=== PATIENT | female | born 1970 | race American Indian/Alaskan Native ===

== ENCOUNTER 2018-01-05 10:33 | Day surgery (SDC) | payer BC ==
[2017-10-09 10:50] VITALS: BMI 43.8
--- NOTE | 2018-01-05 12:28 | CP.SDSHP ---
Same Day Surgery H & P - History Proposed Procedure: US guided FNA of left thyroid nodule Pre-Op Diagnosis: left thyroid nodule - Allergies Allergies: Allergies azithromycin [From Zithromax Z-Roberto] Allergy (Verified 10/09/17 11:16) ANAPHYLAXIS ibuprofen [From Motrin] Allergy (Verified 10/09/17 11:16) ANAPHYLAXIS Iodine and Iodide Containing Produc Allergy (Verified 01/05/18 10:54) SHORTNESS OF BREATH pt denies, [id number] levofloxacin [From Levaquin] Allergy (Verified 10/09/17 11:16) RASH only if taking it more then 2 weeks - Physical Exam Vital Signs: Vital Signs 01/05/18 10:55 Temperature 97.5 F L Pulse Rate 80 Respiratory 20 Rate Blood Pressure 137/84 O2 Sat by Pulse 96 Oximetry - Impression Impression: Pt with subcentimeter right thyroid nodules and 2cm left thyroid nodule. Plan US guided FNA of left thyroid nodule. Pt. Evaluated Today:Candidate for Anesthesia & Procedure: No - Date & Time Date: 01/05/18 Time: 12:00 Short Stay Discharge - Short Stay Discharge Admitting Diagnosis/Reason for Visit: THYROID MODULE Disposition: HOME/ ROUTINE
--- NOTE | 2018-01-05 12:30 | PCM.SURG1 ---
Surgeon's Initial Post Op Note - Surgeon's Notes Surgeon: Delfino Richardson MD Network Director: NONE Type of Anesthesia: Local Pre-Operative Diagnosis: Left thyroid nodule Operative Findings: US showed a hypoechoic left thyroid 2 cm nodule. Post-Operative Diagnosis: Left thyroid nodule Operation Performed: US guided FNA Specimen/Specimens Removed: 25 g FNA x 4 passes Estimated Blood Loss: EBL {In ML}: 0 Blood Products Given: N/A Drains Used: No Drains Post-Op Condition: Fair Date of Surgery/Procedure: 01/05/18 Time of Surgery/Procedure: 12:25
--- NOTE | 2018-01-05 13:50 | US ---
PROCEDURE: Date of Procedure: 01/05/2018 PROCEDURE: 1. Ultrasound guided FNA of left thyroid nodule, CPT 00586 2. Ultrasound guidance for FNA, 14619 Medications: 4CC 1% Lidocaine HISTORY: Enlarged left thyroid nodule. TECHNIQUE: Following informed consent and procedure time-out, a limited ultrasound patient's neck confirmed the presence of a 2 cm left thyroid nodule which is predominantly solid. Several subcentimeter nodules present in the right thyroid gland. After the patient's neck was prepped and draped in the usual sterile fashion, the skin was anesthetized with 1% lidocaine. Ultrasound-guided fine needle aspiration was then performed of the dominant left thyroid nodule. A total of 4 passes were made into the nodule with 25 gauge needle under ultrasound guidance. The FNA specimen was sent for routine pathology. Post biopsy ultrasound showed no hematoma. IMPRESSION: Ultrasound-guided FNA of the dominant left thyroid nodule.
[2018-01-05 14:32] VITALS: BP 137/72; PULSE 71; RESP 18; TEMP 97; O2SAT 100
== END 2018-01-05 14:35 | disposition home or self-care (01) ==
LOC: C.SDS 10:33
PROVIDERS: ATTEND Radiology Vascular & Interventional Radiology
DX: E04.2 Nontoxic multinodular goiter (principal)

== ENCOUNTER 2019-03-16 01:47 | Emergency (ER) | payer BC ==
[2019-03-16 01:47] VITALS: BMI 47.0
[2019-03-16] MEDS ORDERED: Hydrocodone/Acetaminophen 5 mg /300 mg Tab PO STA (02:31)
[2019-03-16] MEDS ORDERED: Hydrocodone/Acetaminophen 5 mg /300 mg Tab PO ONE (02:46)
--- NOTE | 2019-03-16 02:47 | C.PDOC ---
History Of Present Illness 49 year old female was walking last night when she felt a pop in her right foot. Patient was already seen by Dr. Bethea in the morning, had negative x-ray and was scheduled for outpatient MRI. She reports pain tonight even after tramadol and tylenol, she called Dr. Bethea who advised her to come in to the ER. No new injuries. Time Seen by Provider: 03/16/19 02:06 Chief Complaint (Nursing): Lower Extremity Problem/Injury History Per: Patient History/Exam Limitations: no limitations Onset/Duration Of Symptoms: Hrs Current Symptoms Are (Timing): Still Present Recent travel outside of the [place]: No Past Medical History Reviewed: Historical Data, Nursing Documentation, Vital Signs Vital Signs: Last Vital Signs Temp 98.5 F 03/16/19 01:58 Pulse 76 03/16/19 01:58 Resp 16 03/16/19 01:58 BP 163/82 H 03/16/19 01:58 Pulse Ox 96 03/16/19 01:58 - Medical History PMH: Anemia, Anxiety, Asthma, Depression, Diabetes, HTN, Migraine, Sleep Apnea Denies: Personality Disorder - [facility] Procedures APPLICATION OF SPLINT (04/09/07) ASSISTANCE WITH RESPIRATORY VENTILATION, <24 HRS, CPAP (12/02/15) D & C NEC (06/27/01) HYSTEROSCOPY (06/27/01) IMMOBILIZ/WOUND ATTN NEC (11/11/02) INJECT/INFUSE NEC (07/31/15) NEBULIZER THERAPY (03/01/14) NON-INVASIVE MECHANICAL VENTILATION (03/01/14) Family History: States: Unknown Family Hx - Social History Hx Tobacco Use: No Hx Alcohol Use: No Hx Substance Use: No - Immunization History Hx Tetanus Toxoid Vaccination: No Hx Influenza Vaccination: No Hx Pneumococcal Vaccination: No Review Of Systems Musculoskeletal: Positive for: Foot Pain Neurological: Negative for: Weakness, Numbness Physical Exam - Physical Exam Appears: Well, Non-toxic, No Acute Distress Skin: Normal Color, Warm, No Rash Head: Atraumatic, Normacephalic Extremity: Capillary Refill (<2 seconds), Other (Tenderness to dorsal aspect of right foot/ankle. No swelling, no ecchymosis, no deformity, no calf or knee swelling.) Pulses: Left Dorsalis Pedis: Normal, Right Dorsalis Pedis: Normal Neurological/Psych: Oriented x3, Normal Speech ED Course And Treatment O2 Sat by Pulse Oximetry: 96 (Room air) Pulse Ox Interpretation: Normal Medical Decision Making Medical Decision Making: Patient declined repeat x-ray, pain meds given, placed in dieter wrap, given crutches with instructions, already has walking boot, stable for dc to follow up with payroll auditor. 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 - Scribe Statement The provider has reviewed the documentation as recorded by the Scribdasia Ribera All medical record entries made by the Dahliaibdasia were at my direction and personally dictated by me. I have reviewed the chart and agree that the record accurately reflects my personal performance of the history, physical exam, medical decision making, and the department course for this patient. I have also personally directed, reviewed, and agree with the discharge instructions and disposition.
[2019-03-16 03:43] VITALS: BP 148/78; PULSE 62; RESP 20; TEMP 98.1
[2019-03-16 04:10] VITALS: O2SAT 96
== END 2019-03-16 03:43 | disposition home or self-care (01) ==
LOC: C.ER 01:47
DX: M25.571 Pain in right ankle and joints of right foot (principal); E11.9 Type 2 diabetes mellitus without complications; I10 Essential (primary) hypertension; F32.9 Major depressive disorder, single episode, unspecified